=== PATIENT | male | born 1955 | race Hispanic/Latino ===

== ENCOUNTER 2017-08-26 10:55 | Emergency (ER) | payer OTHER ==
--- NOTE | 2017-08-26 13:40 | Emergency Department Report ---
ED Seizure HPI - General Chief Complaint: Seizure Stated Complaint: POSS SEIZURE Time Seen by Provider: 08/26/17 12:33 Source: EMS Mode of arrival: Stretcher Limitations: Altered Mental Status - History of Present Illness Initial Comments: From chart review, neighbor saw patient having seizure-like activity. EMS was called who brought him into the ER. No cords agents were given. Patient doesn' t remember having a seizure. States that he has been a little dizzy lately. He is a poor historian. Patient appears to be homeless. Discussed with the patient's niece, who states that he wonders a street asking people for money. She doesn't know of any medical history. However, she has noticed him having worsening mental status over the past couple months. She is concerned that he could be using drugs. At time of presentation, patient has no complaints. NIHSS 0 on presentation. - Related Data Home Medications Medication Instructions Recorded Confirmed Last Taken No Known Home Medications [No 08/26/17 08/26/17 Unknown Reported Home Medications] Allergies Allergy/AdvReac Type Severity Reaction Status Date / Time No Known Allergies Allergy Unverified 08/26/17 12:28 ED Review of Systems ROS: Stated complaint: POSS SEIZURE Other details as noted in HPI Constitutional: denies: chills, fever Eyes: denies: eye pain, eye discharge, vision change ENT: denies: ear pain, throat pain Respiratory: denies: cough, shortness of breath, wheezing Cardiovascular: denies: chest pain, palpitations Endocrine: no symptoms reported Gastrointestinal: denies: abdominal pain, nausea, diarrhea Genitourinary: denies: urgency, dysuria Musculoskeletal: denies: back pain, joint swelling, arthralgia Skin: denies: rash, lesions Neurological: other. denies: headache, weakness, paresthesias Psychiatric: denies: anxiety, depression Hematological/Lymphatic: denies: easy bleeding, easy bruising ED Past Medical Hx - Past Medical History Previous Medical History?: No Hx Psychiatric Treatment: Yes (SCHZOPHENIA) - Social History Smoking Status: Never Smoker Substance Use Type: Alcohol - Medications Home Medications: Home Medications Medication Instructions Recorded Confirmed Last Taken Type No Known Home Medications [No 08/26/17 08/26/17 Unknown History Reported Home Medications] ED Physical Exam - General Limitations: Altered Mental Status General appearance: alert - Head Head exam: Present: atraumatic, normocephalic - Eye Eye exam: Present: normal appearance - ENT ENT exam: Present: mucous membranes moist - Neck Neck exam: Present: normal inspection - Respiratory Respiratory exam: Present: normal lung sounds bilaterally. Absent: respiratory distress - Cardiovascular Cardiovascular Exam: Present: regular rate, normal rhythm. Absent: systolic murmur, diastolic murmur, rubs, gallop - GI/Abdominal GI/Abdominal exam: Present: soft, normal bowel sounds - Rectal Rectal exam: Present: deferred - Extremities Exam Extremities exam: Present: normal inspection - Back Exam Back exam: Present: normal inspection - Neurological Exam Neurological exam: Present: alert, altered (oriented to place and person) - Psychiatric Psychiatric exam: Present: normal affect, normal mood - Skin Skin exam: Present: warm, dry, intact, normal color. Absent: rash ED Course Vital Signs 08/26/17 08/26/17 12:05 12:25 Temperature 97.7 F 97.7 F Pulse Rate 67 67 Respiratory 13 13 Rate Blood Pressure 123/66 Blood Pressure 123/66 [Left] O2 Sat by Pulse 98 98 Oximetry ED Medical Decision Making - Lab Data Result diagrams: 08/26/17 13:09 08/26/17 13:09 - EKG Data -: EKG Interpreted by Mt EKG shows normal: sinus rhythm, axis, intervals, QRS complexes, ST-T waves Rate: normal - EKG Data Interpretation: no acute changes - Radiology Data Radiology results: report reviewed - Medical Decision Making 62-year-old male with no significant past medical history that presents with concerns for seizure-like activity. Lab work unremarkable. CT head shows chronic microvascular changes. EKG showed questionable ST elevation in lead V2. Low suspicion for ischemic event given there is no 2 contiguous leads with changes, no reciprocal changes, patient denying chest pain at this time. The patient's niece is concerned about his mental state. Mental health came and evaluated the patient. They felt that he would be appropriate for outpatient psychiatric evaluation. She feels comfortable taking him home. Patient was able to ambulate and eat without difficulty. He is clear for discharge. From discussion with the patient's niece, he lives with his sister. However, she didn't seem to be doing this job taking care of him. The niece is concerned about the patient's safety at this time. - Differential Diagnosis seizure, drug-induced, electrolyte abnormality, psychosis, sepsis Critical care attestation.: If time is entered above; I have spent that time in minutes in the direct care of this critically ill patient, excluding procedure time. ED Disposition Clinical Impression: Seizure-like activity Disposition: DC-01 TO HOME OR SELFCARE Is pt being admited?: No Condition: Stable Additional Instructions: Please follow up with the [facility] for further medical evaluation. You have been given resources for out-patient psychiatric evaluation as well. Referrals: PRIMARY CARE [Primary Care Provider] - 3-5 Days [facility] [Provider Group] - 3-5 Days
[2017-08-26 13:42] LABS: Hematocrit 36.6 % (35.5-45.6); Hemoglobin 12.6 gm/dl (11.8-15.2); Mean Corpuscular HGB Conc 35 % (32-34); Mean Corpuscular Hemoglobin 30 pg (28-32); Mean Corpuscular Volume 86 fl (84-94); Platelet Count 485 K/mm3 (140-440); Red Blood Count 4.25 M/mm3 (3.65-5.03)
[2017-08-26 13:54] LABS: Blood Urea Nitrogen 8 mg/dL (9-20)
--- NOTE | 2017-08-26 14:23 | Cat Scan Report ---
CT HEAD WITHOUT CONTRAST: HISTORY: New onset seizure. TECHNIQUE: Sequential CT images without contrast. FINDINGS: Images obtained show bilateral prominence of the sulci and ventricles. There are no abnormal intra- or extra-axial blood or fluid collections. There are no focal masses or evidence of mass effect. The bhandari white matter differentiation appears within normal limits. Regions of periventricular decreased attenuation are consistent with microangiopathic ischemic disease. The posterior fossa structures including the fourth ventricle, cerebellum, and brainstem appear normal. IMPRESSION: Evidence of atrophy and microangiopathic ischemic disease. No acute intracranial process noted.
[2017-08-26 14:50] LABS: BUN/Creatinine Ratio 9; Calcium 8.8 mg/dL (8.4-10.2); Hemolysis Index 7
[2017-08-26 17:01] LABS: Alanine Aminotransferase 14 units/L (7-56); Albumin 3.9 g/dL (3.9-5)
[2017-08-26 17:13] LABS: Bilirubin,Direct < 0.2 mg/dL (0-0.2)
[2017-08-26 19:20] VITALS: BP 122/99
== END 2017-08-26 19:20 | disposition home or self-care (01) ==
LOC: ED 10:55
DX: R56.9 Unspecified convulsions (principal); R41.82 Altered mental status, unspecified; R42 Dizziness and giddiness; F20.9 Schizophrenia, unspecified
CPT/HCPCS: 36415; 70450; 80048; 80074; 82140; 82962; 84484; 85027; 93005; 93010; 99285; G0480; 80320

== ENCOUNTER 2018-09-10 10:22 | Inpatient (IN) | payer OTHER ==
[2018-09-10] MEDS ORDERED: NACL 0.9% 1000 ML 1,000 ML IV ONE (10:49)
[2018-09-10] MEDS ORDERED: KEPPRA 1,000 MG/NS 0.75% 100ML 1,000 MG/100 ML BAG IV ONE (10:49)
--- NOTE | 2018-09-10 11:26 | XRay Report ---
AP CHEST: HISTORY: Hypertension AP view of the chest demonstrates a normal mediastinal and cardiac contour with clear lungs and normal bony and soft tissue structures. IMPRESSION: Unremarkable AP chest.
[2018-09-10 11:34] LABS: Basophils # (Auto) 0.1 K/mm3 (0.0-0.1); Basophils % (Auto) 0.9 % (0.0-1.8); Eosinophils # (Auto) 0.1 K/mm3 (0.0-0.4); Eosinophils % (Auto) 0.9 % (0.0-4.3); Hematocrit 39.8 % (35.5-45.6); Hemoglobin 13.3 gm/dl (11.8-15.2); Lymphocytes # (Auto) 1.1 K/mm3 (1.2-5.4); Lymphocytes % (Auto) 11.2 % (13.4-35.0); Mean Corpuscular HGB Conc 34 % (32-34); Mean Corpuscular Volume 87 fl (84-94); Monocytes # (Auto) 0.2 K/mm3 (0.0-0.8); Monocytes % (Auto) 2.2 % (0.0-7.3); Platelet Count 313 K/mm3 (140-440); Red Blood Count 4.56 M/mm3 (3.65-5.03); Red Cell Distribution Width 14.7 % (13.2-15.2)
--- NOTE | 2018-09-10 11:43 | Cat Scan Report ---
PROCEDURE: CT HEAD/BRAIN WO CON TECHNIQUE: Computerized tomography of the head was performed without contrast material. CT DOSE LENGTH PRODUCT: 920.5 mGycm HISTORY: Altered Mental Status COMPARISONS: 08/26/2017 . FINDINGS: Again noted is small polyp or retention cyst in left maxillary sinus. No acute air-fluid level visualized in the included air-filled sinuses. Bone windows demonstrate no acute fracture. There is ventricular and sulcal prominence compatible with age-appropriate global cerebrocortical atr ophy. Low attenuation regions in the cerebral white matter, while nonspecific, are present and usually attr ibuted to chronic ischemic gliosis. It can occur secondary to the normal aging process, hypertension, or arterial sclerotic vascular dise ase. The differential includes demyelination in the appropriate clinical setting. The brain contains no mass, mass effect, hemorrhage, or acute infarct. There is no extra-axial intracranial bleed or brain bleed. There is no midline shift. IMPRESSION: No acute CVA, intracranial bleed, or brain mass This document is electronically signed by Jose Luis Gasca MD., September 10 2018 11:41:17 AM ET
[2018-09-10 11:46] LABS: INR 0.95 (0.87-1.13)
[2018-09-10 11:56] LABS: Alanine Aminotransferase 14 units/L (7-56); Albumin 4.2 g/dL (3.9-5)
[2018-09-10 11:57] LABS: Bilirubin,Direct < 0.2 mg/dL (0-0.2)
--- NOTE | 2018-09-10 13:03 | Emergency Department Report ---
ED General Adult HPI - General Chief complaint: Altered Mental Status Stated complaint: AMS Time Seen by Provider: 09/10/18 10:30 Source: EMS Mode of arrival: Stretcher Limitations: Altered Mental Status - History of Present Illness Initial comments: 63 year old man is brought by EMS for presumptive evaluation of a seizure. Family members are not yet available. Medics found the man with altered mental status. Family stated that he "reared up". They state that he has never had a seizure before. However records from last year seemed to indicate that likely he has had a prior episode. According to the medics, he is coming from a very poor home environment. Further history is yet unavailable. -: unknown Severity scale (0 -10): 0 - Related Data Home Medications Medication Instructions Recorded Confirmed Last Taken No Known Home Medications [No 08/26/17 08/26/17 Unknown Reported Home Medications] Allergies Allergy/AdvReac Type Severity Reaction Status Date / Time No Known Allergies Allergy Verified 09/10/18 10:34 ED Review of Systems ROS: Stated complaint: AMS Other details as noted in HPI Comment: Unobtainable due to pts medical conditions (patient is not reporting any specific complaint) ED Past Medical Hx - Past Medical History Previous Medical History?: Yes Hx Psychiatric Treatment: Yes (SCHZOPHENIA) - Surgical History Past Surgical History?: No - Social History Smoking Status: Never Smoker - Medications Home Medications: Home Medications Medication Instructions Recorded Confirmed Last Taken Type No Known Home Medications [No 08/26/17 08/26/17 Unknown History Reported Home Medications] ED Physical Exam - General Limitations: Altered Mental Status General appearance: alert, in no apparent distress, cachectic - Head Head exam: Present: atraumatic, normocephalic - Eye Eye exam: Present: normal appearance. Absent: scleral icterus - ENT ENT exam: Present: mucous membranes moist - Neck Neck exam: Present: normal inspection. Absent: tenderness, meningismus - Respiratory Respiratory exam: Present: normal lung sounds bilaterally. Absent: respiratory distress - Cardiovascular Cardiovascular Exam: Present: regular rate, normal rhythm. Absent: systolic murmur, diastolic murmur, rubs, gallop - GI/Abdominal GI/Abdominal exam: Present: soft, normal bowel sounds. Absent: distended, tenderness, guarding, rebound, rigid - Rectal Rectal exam: Present: deferred - Extremities Exam Extremities exam: Present: normal inspection - Back Exam Back exam: Present: normal inspection - Neurological Exam Neurological exam: Present: alert, altered, CN II-XII intact - Psychiatric Psychiatric exam: Present: normal mood, flat affect - Skin Skin exam: Present: warm, dry, intact, normal color. Absent: rash ED Course Vital Signs 09/10/18 10:22 Temperature 97.9 F Pulse Rate 74 Respiratory 12 Rate Blood Pressure 103/55 [Left] O2 Sat by Pulse 100 Oximetry - Reevaluation(s) Reevaluation #1: On reassessment the patient is able to give me his name now. There are no signs of a stroke syndrome. He may have an improving postictal state. He may have a combination of dementia and schizophrenia. He has been seen by case management. A formal consult will be issued. Case was discussed with Dr. Luis. He is aware of the patient's elevated lactic acid level. There is another one pending. He does not have a SIRS syndrome. We have elected to hold off on antibiotics at this point. The patient will be admitted. 09/10/18 13:02 Reevaluation #2: Urinanalysis is yet pending. Straight cath was ordered. 09/10/18 13:04 ED Medical Decision Making - Lab Data Result diagrams: 09/10/18 11:03 09/10/18 11:03 Laboratory Results - last 24 hr 09/10/18 09/10/18 09/10/18 11:03 11:03 11:03 WBC RBC Hgb Hct MCV MCH MCHC RDW Plt Count Lymph % (Auto) Sampson % (Auto) Eos % (Auto) Baso % (Auto) Lymph # Sampson # Eos # Baso # Seg Neutrophils % Seg Neutrophils # PT 13.2 INR 0.95 APTT 20.0 L Sodium Potassium Chloride Carbon Dioxide Anion Gap BUN Creatinine Estimated GFR BUN/Creatinine Ratio Glucose Lactic Acid 3.80 H* Calcium Magnesium Total Bilirubin 0.60 Direct Bilirubin < 0.2 Indirect Bilirubin 0.4 AST 20 ALT 14 Alkaline Phosphatase 54 Ammonia Total Creatine Kinase 226 H Troponin T < 0.010 Total Protein 6.9 Albumin 4.2 Albumin/Globulin Ratio 1.6 Salicylates Acetaminophen Plasma/Serum Alcohol 09/10/18 09/10/18 09/10/18 11:03 11:03 11:03 WBC RBC Hgb Hct MCV MCH MCHC RDW Plt Count Lymph % (Auto) [place] % (Auto) Eos % (Auto) Baso % (Auto) Lymph # Sampson # Eos # Baso # Seg Neutrophils % Seg Neutrophils # PT INR APTT Sodium Potassium Chloride Carbon Dioxide Anion Gap BUN Creatinine Estimated GFR BUN/Creatinine Ratio Glucose Lactic Acid Calcium Magnesium Total Bilirubin Direct Bilirubin Indirect Bilirubin AST ALT Alkaline Phosphatase Ammonia 18.0 L Total Creatine Kinase Troponin T Total Protein Albumin Albumin/Globulin Ratio Salicylates < 0.3 L Acetaminophen < 5.0 L Plasma/Serum Alcohol 09/10/18 09/10/18 09/10/18 11:03 11:03 11:03 WBC 10.1 RBC 4.56 Hgb 13.3 Hct 39.8 MCV 87 MCH 29 MCHC 34 RDW 14.7 Plt Count 313 Lymph % (Auto) 11.2 L Sampson % (Auto) 2.2 Eos % (Auto) 0.9 Baso % (Auto) 0.9 Lymph # 1.1 L Sampson # 0.2 Eos # 0.1 Baso # 0.1 Seg Neutrophils % 84.8 H Seg Neutrophils # 8.5 H PT INR APTT Sodium 140 Potassium 4.5 Chloride 103.4 Carbon Dioxide 22 Anion Gap 19 BUN 17 Creatinine 1.5 Estimated GFR 47 BUN/Creatinine Ratio 11 Glucose 87 Lactic Acid Calcium 9.0 Magnesium 2.10 Total Bilirubin Direct Bilirubin Indirect Bilirubin AST ALT Alkaline Phosphatase Ammonia Total Creatine Kinase Troponin T Total Protein Albumin Albumin/Globulin Ratio Salicylates Acetaminophen Plasma/Serum Alcohol < 0.01 - EKG Data -: EKG Interpreted by Nv EKG shows normal: sinus rhythm - EKG Data Interpretation: other (right bundle branch block. Possible LVH. Secondary repolarization abnormality) - Radiology Data Radiology results: report reviewed (CT head and chest x-ray no acute process) Critical care attestation.: If time is entered above; I have spent that time in minutes in the direct care of this critically ill patient, excluding procedure time. ED Disposition Clinical Impression: Acute encephalopathy, Postictal state, Elevated lactic acid level Disposition: OP ADMIT IP TO THIS HOSP Is pt being admited?: Yes Does the pt Need Aspirin: Yes Condition: Stable Referrals: RUPERTO BARRETO MD [Primary Care Provider] - 3-5 Days Time of Disposition: 13:05
[2018-09-10] MEDS ORDERED: ASPIRIN PO ONE (13:05)
[2018-09-10 14:17] LABS: Bacteria,Urine 1+ /HPF (Negative); Bilirubin,Urine NEG (Negative); Blood,Urine SM (Negative); Color,Urine Yellow (Yellow); Protein,Urine <15 mg/dL mg/dL (Negative); Sperm,Urine FEW /HPF (NP); Urobilinogen,Urine < 2.0 mg/dL (<2.0)
[2018-09-10 14:31] LABS: Amphetamine Screen,Urine PRESUMPTIVE NEGATIVE; Benzodiazepines Screen,Urine PRESUMPTIVE NEGATIVE; Cannabinoid Screen,Urine PRESUMPTIVE NEGATIVE; Cocaine Screen,Urine PRESUMPTIVE NEGATIVE; Methadone Screen,Urine PRESUMPTIVE NEGATIVE; Opiate Screen,Urine PRESUMPTIVE NEGATIVE
[2018-09-10] MEDS ORDERED: SODIUM CHLORIDE FLUSH SYRINGE 10 ML IV PRN (22:14)
[2018-09-10] MEDS ORDERED: DILAUDID IV PRN (22:14)
[2018-09-10] MEDS ORDERED: ZOFRAN IV PRN (22:14)
[2018-09-10] MEDS ORDERED: TYLENOL PO PRN (22:14)
[2018-09-10] MEDS ORDERED: IBUPROFEN PO PRN (22:14)
[2018-09-10] MEDS ORDERED: KEPPRA 750 MG in D5W 100 ML IV SCH (23:00)
[2018-09-10] MEDS ORDERED: D5NS 1,000 ML IV SCH (23:00)
--- NOTE | 2018-09-11 05:40 | Event Note ---
Date: 09/10/18 See H/p in reports Seizure Disorder AMS Dementia
--- NOTE | 2018-09-11 05:59 | History and Physical Report ---
CHIEF COMPLAINT: Seizures x 1. HISTORY OF PRESENT ILLNESS: As per the EMS, a 63-year-old man brought in for one episode of seizures. The history is not reliable. In the ER, the patient is emaciated and confused, wants to go home, but does not know the address. Keeps getting up in the Emergency Room, taking his IV out and wanting to go home, but not able to give address and saying that he lives close by and he can walk back to the house. Not able to tell the date and place. Otherwise, alert and oriented to person and place, but not time. He says he has a dog, which is to be taken care of. Apparent seizures x 1. No fever or chills. No recent travel, no shortness of breath. PAST MEDICAL HISTORY: Schizophrenia. PAST SURGICAL HISTORY: None. SOCIAL HISTORY: Does not smoke, emaciated. FAMILY HISTORY: Unknown. REVIEW OF SYSTEMS: Significant for being alert, but confused. One episode of probable seizures. No psychotic symptoms. PHYSICAL EXAMINATION: GENERAL: Elderly male, frail and thin, unkempt. HEENT: Unremarkable. Pupils equal and reactive. NECK: Supple, no lymphadenopathy, no thyromegaly. LUNGS: Clear to auscultation and percussion. Good air entry. CARDIOVASCULAR: S1, S2 heard. No gallop, no murmur, no rub. Apical impulse in left fifth intercostal space and midclavicular line. ABDOMEN: Soft and benign. No hepatosplenomegaly. No guarding, no rigidity. Hernial orifices are normal. EXTREMITIES: Good pedal pulses. No pedal edema. CENTRAL NERVOUS SYSTEM: Alert and oriented to place. Unable to give his address. Power is 5/5 in all 4 extremities. SKIN: Normal. LABORATORY DATA: Drug screen was negative. Urine is negative. Electrolytes are normal. Lactic acid is 3.8 and 2.5. Ammonia level was low 18. Total CK is 226, but CK-MB and all are negative. Troponin is negative. CBC: White count is 10,100, H and H is 13.3 and 39.8. Platelet count is 313,000. CT of the head shows normal CT. No acute CVA or intracranial bleed or brain mass. Chest x-ray is also normal. EKG shows right bundle branch block and LVH. Secondary repolarization abnormalities. Otherwise, sinus rhythm. ASSESSMENT AND PLAN: 1. Seizure disorder. The patient not in postictal state. The patient started on IV Keppra 750 q. 12. We will get a Neurology consult. The patient may be discharged on Keppra p.o. 2. Altered mental status. The patient is alert and oriented to some extent. Signs of severe dementia present. Neurology consult requested. 3. Schizophrenia, mental health consult requested. 4. Deep venous thrombosis prophylaxis. Lovenox was started and gastrointestinal prophylaxis started. DISCHARGE PLANNING ISSUES: The patient is not able to tell his address and where to go. His relatives to be located and get a baseline assessment and probably discharged back to the relatives and in a safe discharge to home. manager [employer] and social work supervisor were requested to evaluate the situation. JOB# [id number] MARYCHUY/HASMUKH CABRAL
[2018-09-11 08:11] LABS: Basophils # (Auto) 0.1 K/mm3 (0.0-0.1); Basophils % (Auto) 0.8 % (0.0-1.8); Eosinophils # (Auto) 0.1 K/mm3 (0.0-0.4); Eosinophils % (Auto) 1.3 % (0.0-4.3); Hematocrit 36.7 % (35.5-45.6); Hemoglobin 12.2 gm/dl (11.8-15.2); Lymphocytes # (Auto) 1.4 K/mm3 (1.2-5.4); Lymphocytes % (Auto) 17.9 % (13.4-35.0); Mean Corpuscular HGB Conc 33 % (32-34); Mean Corpuscular Volume 87 fl (84-94); Monocytes # (Auto) 0.5 K/mm3 (0.0-0.8); Platelet Count 291 K/mm3 (140-440); Red Blood Count 4.25 M/mm3 (3.65-5.03); Red Cell Distribution Width 14.8 % (13.2-15.2)
[2018-09-11 08:42] LABS: Albumin 3.3 g/dL (3.9-5); Calcium 8.1 mg/dL (8.4-10.2)
--- NOTE | 2018-09-11 08:52 | Progress Note ---
Assessment and Plan Assessment and plan: Patient is a 63 yo man with a history of Schizophrenia and dementia who presented to [facility] with AMS and possible seizure activity Acute encephalopathy treat the underling seizures Acute on chronic seizure disorder: treat with Keppra, pending Neurology isaac vitale Bradycardia: continue to monitor, get EKG, add remote tele, get ECHO Elevated bp uncontrolled: stop IVF on regular diet Lactic acidosis, non-infectious Mild malnutrition: dietary supplements recommended DVT ppx on Lovenox Disposition: continue inpatient care, workup HR 49, d/c home with family or admit to [facility] unit History Interval history: Patient was seen and examined. Follow-up on current diagnosis of SZ and AMS. No overnight events reported to me. Patient denies any chest pain, shortness breath, nausea/vomiting or severe headaches. Imaging, nursing note, chart, labs and old chart reviewed. Discussed with patient. Hospitalist Physical - Physical exam Narrative exam: Gen: thin frail, NAD, Awake, confused HEENT: NCAT, EOMI, PERRL, OP Clear Neck: supple, no adenopathy, no thyromegaly, no JVD CVS/Heart: Regular bradycardia, normal S1S2, pulses present bilaterally Chest/Lungs: CTA B, Symmetrical chest expansion, good air entry bilaterally GI/Abdomen: soft, NTND, good bowel sounds, no guarding or rebound /Bladder: no suprapubic tenderness, no CVA or paraspinal tenderness Extermity/Skin: no c/c/e, no obvious rash MSK: FROM x 4 Neuro: CN 2-12 grossly intact, no new focal deficits Psych: confused - Constitutional Vitals: Temp Pulse Resp BP Pulse Ox 97.6 F 49 L 16 115/76 98 09/11/18 05:56 09/11/18 05:56 09/11/18 05:56 09/11/18 05:56 09/11/18 05:56 Results - Labs CBC & Chem 7: 09/11/18 07:23 09/11/18 07:23 Labs: Laboratory Last Values WBC 7.8 K/mm3 (4.5-11.0) 09/11/18 07:23 RBC 4.25 M/mm3 (3.65-5.03) 09/11/18 07:23 Hgb 12.2 gm/dl (11.8-15.2) 09/11/18 07:23 Hct 36.7 % (35.5-45.6) 09/11/18 07:23 MCV 87 fl (84-94) 09/11/18 07:23 MCH 29 pg (28-32) 09/11/18 07:23 MCHC 33 % (32-34) 09/11/18 07:23 RDW 14.8 % (13.2-15.2) 09/11/18 07:23 Plt Count 291 K/mm3 (140-440) 09/11/18 07:23 Lymph % (Auto) 17.9 % (13.4-35.0) 09/11/18 07:23 [place] % (Auto) 6.0 % (0.0-7.3) 09/11/18 07:23 Eos % (Auto) 1.3 % (0.0-4.3) 09/11/18 07:23 Baso % (Auto) 0.8 % (0.0-1.8) 09/11/18 07:23 Lymph # 1.4 K/mm3 (1.2-5.4) 09/11/18 07:23 [place] # 0.5 K/mm3 (0.0-0.8) 09/11/18 07:23 Eos # 0.1 K/mm3 (0.0-0.4) 09/11/18 07:23 Baso # 0.1 K/mm3 (0.0-0.1) 09/11/18 07:23 Seg Neutrophils % 74.0 % (40.0-70.0) H 09/11/18 07:23 Seg Neutrophils # 5.7 K/mm3 (1.8-7.7) 09/11/18 07:23 PT 13.2 Sec. (12.2-14.9) 09/10/18 11:03 INR 0.95 (0.87-1.13) 09/10/18 11:03 APTT 20.0 Sec. (24.2-36.6) L 09/10/18 11:03 Sodium 142 mmol/L (137-145) 09/11/18 07:23 Potassium 3.4 mmol/L (3.6-5.0) L D 09/11/18 07:23 Chloride 108.0 mmol/L (98-107) H 09/11/18 07:23 Carbon Dioxide 22 mmol/L (22-30) 09/11/18 07:23 15 mmol/L 09/11/18 07:23 BUN 16 mg/dL (9-20) 09/11/18 07:23 1.3 mg/dL (0.8-1.5) 09/11/18 07:23 Estimated GFR 56 ml/min 09/11/18 07:23 12 % 09/11/18 07:23 Glucose 114 mg/dL (75-100) H 09/11/18 07:23 5.4 % (4-6) 09/10/18 22:37 Lactic Acid 0.80 mmol/L (0.7-2.0) 09/10/18 20:54 Calcium 8.1 mg/dL (8.4-10.2) L 09/11/18 07:23 Magnesium 2.10 mg/dL (1.7-2.3) 09/10/18 11:03 1.10 mg/dL (0.1-1.2) 09/11/18 07:23 < 0.2 mg/dL (0-0.2) 09/10/18 11:03 0.4 mg/dL 09/10/18 11:03 AST 19 units/L (5-40) 09/11/18 07:23 ALT 10 units/L (7-56) 09/11/18 07:23 46 units/L (35-129) 09/11/18 07:23 18.0 umol/L (25-60) L 09/10/18 11:03 226 units/L (55-170) H 09/10/18 11:03 < 0.010 ng/mL (0.00-0.029) 09/10/18 11:03 5.6 g/dL (6.3-8.2) L 09/11/18 07:23 3.3 g/dL (3.9-5) L 09/11/18 07:23 1.4 % 09/11/18 07:23 Yellow (Yellow) 09/10/18 Unknown Cloudy (Clear) 09/10/18 Unknown 5.0 (5.0-7.0) 09/10/18 Unknown Ur Specific [place] 1.014 (1.003-1.030) 09/10/18 Unknown <15 mg/dl mg/dL (Negative) 09/10/18 Unknown Neg mg/dL (Negative) 09/10/18 Unknown Neg mg/dL (Negative) 09/10/18 Unknown Sm (Negative) 09/10/18 Unknown Neg (Negative) 09/10/18 Unknown Neg (Negative) 09/10/18 Unknown < 2.0 mg/dL (<2.0) 09/10/18 Unknown Ur Leukocyte Esterase Neg (Negative) 09/10/18 Unknown 2.0 /HPF (0.0-6.0) 09/10/18 Unknown 3.0 /HPF (0.0-6.0) 09/10/18 Unknown U Epithel Cells (Auto) < 1.0 /HPF (0-13.0) 09/10/18 Unknown 1+ /HPF (Negative) 09/10/18 Unknown Uric Acid Crystals 2+ 09/10/18 Unknown Few /HPF ([employer]) 09/10/18 Unknown Salicylates < 0.3 mg/dL (2.8-20.0) L 09/10/18 11:03 Presumptive negative 09/10/18 Unknown Presumptive negative 09/10/18 Unknown Acetaminophen < 5.0 ug/mL (10.0-30.0) L 09/10/18 11:03 Ur Barbiturates Screen Presumptive negative 09/10/18 Unknown Ur Phencyclidine Scrn Presumptive negative 09/10/18 Unknown Ur Amphetamines Screen Presumptive negative 09/10/18 Unknown U Benzodiazepines Scrn Presumptive negative 09/10/18 Unknown Presumptive negative 09/10/18 Unknown U Marijuana (THC) Screen Presumptive negative 09/10/18 Unknown Disclamer 09/10/18 Unknown Plasma/Serum Alcohol < 0.01 % (0-0.07) 09/10/18 11:03 Active Medications - Current Medications Current Medications: Generic Name Dose Route Start Last Admin Trade Name Freq PRN Reason Stop Dose Admin Acetaminophen 650 mg 09/10/18 22:14 Tylenol PO Q4H PRN Pain MILD(1-3)/Fever >100.5/CHAVEZ Enoxaparin Sodium 40 mg 09/11/18 10:00 Lovenox SUB-Q QDAY@1000 TALIA Famotidine 10 mg 09/11/18 10:00 Pepcid PO BID TALIA Hydromorphone HCl 0.25 mg 09/10/18 22:14 Dilaudid IV Q3H PRN Pain, Moderate (4-6) Dextrose/Sodium Chloride 1,000 mls @ 100 mls/hr 09/10/18 23:00 09/11/18 00:07 D5ns IV 100 mls/hr DIRECT TALIA Administration Levetiracetam 750 mg/ Dextrose 107.5 mls @ 400 mls/hr 09/10/18 23:00 09/10/18 23:57 IV 400 mls/hr Q12HR TALIA Administration Ibuprofen 600 mg 09/10/18 22:14 Ibuprofen PO Q6H PRN Pain, Mild (1-3) Ondansetron HCl 4 mg 09/10/18 22:14 Zofran IV Q8H PRN Nausea And Vomiting Sodium Chloride 10 ml 09/11/18 10:00 Sodium Chloride Flush Syringe 10 Ml IV BID TALIA Sodium Chloride 10 ml 09/10/18 22:14 Sodium Chloride Flush Syringe 10 Ml IV PRN PRN LINE FLUSH
[2018-09-11] MEDS ORDERED: LOVENOX SUB-Q SCH (10:00)
[2018-09-11] MEDS: SODIUM CHLORIDE FLUSH SYRINGE 10 ML IV SCH (10:00)
[2018-09-11] MEDS ORDERED: PEPCID PO SCH (10:00)
[2018-09-11] MEDS: KEPPRA PO SCH ×2 (11:38→21:40)
[2018-09-11] MEDS: PEPCID PO SCH ×2 (11:40→21:40)
[2018-09-11] MEDS: LOVENOX SUB-Q SCH (11:41)
[2018-09-12] MEDS: LOVENOX SUB-Q SCH (11:30)
[2018-09-12] MEDS: PEPCID PO SCH ×2 (11:30→21:43)
[2018-09-12] MEDS: KEPPRA PO SCH ×2 (11:30→21:43)
[2018-09-12] MEDS: SODIUM CHLORIDE FLUSH SYRINGE 10 ML IV SCH ×2 (11:31→21:46)
--- NOTE | 2018-09-12 15:02 | Progress Note ---
Assessment and Plan Assessment and plan: Patient is a 63 yo man with a history of Schizophrenia and dementia who presented to [facility] with AMS and possible seizure activity Acute encephalopathy treat the underling seizures Acute on chronic seizure disorder: treat with Keppra, pending Neurology isaac vitale Bradycardia: continue to monitor, get EKG, add remote tele, get ECHO Elevated bp uncontrolled: stop IVF on regular diet Lactic acidosis, non-infectious Mild malnutrition: dietary supplements recommended DVT ppx on Lovenox Disposition: continue inpatient care, workup HR 49, d/c home with family once psych clears History Interval history: Patient was seen and examined. Follow-up on current diagnosis of SZ and AMS. No overnight events reported to me. Patient denies any chest pain, shortness breath, nausea/vomiting or severe headaches. Imaging, nursing note, chart, labs and old chart reviewed. Discussed with patient. Hospitalist Physical - Physical exam Narrative exam: Gen: thin frail, NAD, Awake, confused HEENT: NCAT, EOMI, PERRL, OP Clear Neck: supple, no adenopathy, no thyromegaly, no JVD CVS/Heart: Regular bradycardia, normal S1S2, pulses present bilaterally Chest/Lungs: CTA B, Symmetrical chest expansion, good air entry bilaterally GI/Abdomen: soft, NTND, good bowel sounds, no guarding or rebound /Bladder: no suprapubic tenderness, no CVA or paraspinal tenderness Extermity/Skin: no c/c/e, no obvious rash MSK: FROM x 4 Neuro: CN 2-12 grossly intact, no new focal deficits Psych: confused - Constitutional Vitals: Temp Pulse Resp BP Pulse Ox 98.4 F 51 L 18 112/60 98 09/12/18 12:25 09/12/18 06:26 09/12/18 12:25 09/12/18 12:25 09/12/18 06:26 Results - Labs CBC & Chem 7: 09/11/18 07:23 09/11/18 07:23 Labs: Laboratory Last Values WBC 7.8 K/mm3 (4.5-11.0) 09/11/18 07:23 RBC 4.25 M/mm3 (3.65-5.03) 09/11/18 07:23 Hgb 12.2 gm/dl (11.8-15.2) 09/11/18 07:23 Hct 36.7 % (35.5-45.6) 09/11/18 07:23 MCV 87 fl (84-94) 09/11/18 07:23 MCH 29 pg (28-32) 09/11/18 07:23 MCHC 33 % (32-34) 09/11/18 07:23 RDW 14.8 % (13.2-15.2) 09/11/18 07:23 Plt Count 291 K/mm3 (140-440) 09/11/18 07:23 Lymph % (Auto) 17.9 % (13.4-35.0) 09/11/18 07:23 [place] % (Auto) 6.0 % (0.0-7.3) 09/11/18 07:23 Eos % (Auto) 1.3 % (0.0-4.3) 09/11/18 07:23 Baso % (Auto) 0.8 % (0.0-1.8) 09/11/18 07:23 Lymph # 1.4 K/mm3 (1.2-5.4) 09/11/18 07:23 [place] # 0.5 K/mm3 (0.0-0.8) 09/11/18 07:23 Eos # 0.1 K/mm3 (0.0-0.4) 09/11/18 07:23 Baso # 0.1 K/mm3 (0.0-0.1) 09/11/18 07:23 Seg Neutrophils % 74.0 % (40.0-70.0) H 09/11/18 07:23 Seg Neutrophils # 5.7 K/mm3 (1.8-7.7) 09/11/18 07:23 PT 13.2 Sec. (12.2-14.9) 09/10/18 11:03 INR 0.95 (0.87-1.13) 09/10/18 11:03 APTT 20.0 Sec. (24.2-36.6) L 09/10/18 11:03 Sodium 142 mmol/L (137-145) 09/11/18 07:23 Potassium 3.4 mmol/L (3.6-5.0) L D 09/11/18 07:23 Chloride 108.0 mmol/L (98-107) H 09/11/18 07:23 Carbon Dioxide 22 mmol/L (22-30) 09/11/18 07:23 15 mmol/L 09/11/18 07:23 BUN 16 mg/dL (9-20) 09/11/18 07:23 1.3 mg/dL (0.8-1.5) 09/11/18 07:23 Estimated GFR 56 ml/min 09/11/18 07:23 12 % 09/11/18 07:23 Glucose 114 mg/dL (75-100) H 09/11/18 07:23 5.4 % (4-6) 09/10/18 22:37 Lactic Acid 0.80 mmol/L (0.7-2.0) 09/10/18 20:54 Calcium 8.1 mg/dL (8.4-10.2) L 09/11/18 07:23 Magnesium 2.10 mg/dL (1.7-2.3) 09/10/18 11:03 1.10 mg/dL (0.1-1.2) 09/11/18 07:23 < 0.2 mg/dL (0-0.2) 09/10/18 11:03 0.4 mg/dL 09/10/18 11:03 AST 19 units/L (5-40) 09/11/18 07:23 ALT 10 units/L (7-56) 09/11/18 07:23 46 units/L (35-129) 09/11/18 07:23 18.0 umol/L (25-60) L 09/10/18 11:03 226 units/L (55-170) H 09/10/18 11:03 < 0.010 ng/mL (0.00-0.029) 09/10/18 11:03 5.6 g/dL (6.3-8.2) L 09/11/18 07:23 3.3 g/dL (3.9-5) L 09/11/18 07:23 1.4 % 09/11/18 07:23 Yellow (Yellow) 09/10/18 Unknown Cloudy (Clear) 09/10/18 Unknown 5.0 (5.0-7.0) 09/10/18 Unknown Ur Specific [place] 1.014 (1.003-1.030) 09/10/18 Unknown <15 mg/dl mg/dL (Negative) 09/10/18 Unknown Neg mg/dL (Negative) 09/10/18 Unknown Neg mg/dL (Negative) 09/10/18 Unknown Sm (Negative) 09/10/18 Unknown Neg (Negative) 09/10/18 Unknown Neg (Negative) 09/10/18 Unknown < 2.0 mg/dL (<2.0) 09/10/18 Unknown Ur Leukocyte Esterase Neg (Negative) 09/10/18 Unknown 2.0 /HPF (0.0-6.0) 09/10/18 Unknown 3.0 /HPF (0.0-6.0) 09/10/18 Unknown U Epithel Cells (Auto) < 1.0 /HPF (0-13.0) 09/10/18 Unknown 1+ /HPF (Negative) 09/10/18 Unknown Uric Acid Crystals 2+ 09/10/18 Unknown Few /HPF (TEXTILE ENGRAVER) 09/10/18 Unknown Salicylates < 0.3 mg/dL (2.8-20.0) L 09/10/18 11:03 Presumptive negative 09/10/18 Unknown Presumptive negative 09/10/18 Unknown Acetaminophen < 5.0 ug/mL (10.0-30.0) L 09/10/18 11:03 Ur Barbiturates Screen Presumptive negative 09/10/18 Unknown Ur Phencyclidine Scrn Presumptive negative 09/10/18 Unknown Ur Amphetamines Screen Presumptive negative 09/10/18 Unknown U Benzodiazepines Scrn Presumptive negative 09/10/18 Unknown Presumptive negative 09/10/18 Unknown U Marijuana (THC) Screen Presumptive negative 09/10/18 Unknown Disclamer 09/10/18 Unknown Plasma/Serum Alcohol < 0.01 % (0-0.07) 09/10/18 11:03 Active Medications - Current Medications Current Medications: Generic Name Dose Route Start Last Admin Trade Name Freq PRN Reason Stop Dose Admin Acetaminophen 650 mg 09/10/18 22:14 Tylenol PO Q4H PRN Pain MILD(1-3)/Fever >100.5/CHAVEZ Enoxaparin Sodium 40 mg 09/11/18 10:00 09/12/18 11:30 Lovenox SUB-Q 40 mg QDAY@1000 TALIA Administration Famotidine 10 mg 09/11/18 10:00 09/12/18 11:30 Pepcid PO 10 mg BID TALIA Administration Hydromorphone HCl 0.25 mg 09/10/18 22:14 Dilaudid IV Q3H PRN Pain, Moderate (4-6) Levetiracetam 750 mg 09/11/18 10:00 09/12/18 11:30 Keppra PO 750 mg BID TALIA Administration Ondansetron HCl 4 mg 09/10/18 22:14 Zofran IV Q8H PRN Nausea And Vomiting Sodium Chloride 10 ml 09/11/18 10:00 09/12/18 11:31 Sodium Chloride Flush Syringe 10 Ml IV 10 ml BID TALIA Administration Sodium Chloride 10 ml 09/10/18 22:14 Sodium Chloride Flush Syringe 10 Ml IV PRN PRN LINE FLUSH Nutrition/Malnutrition Assess - Dietary Evaluation Nutrition/Malnutrition Findings: Nutrition Notes Start: 09/11/18 16:55 Freq: Status: Active Protocol: Document 09/11/18 16:55 RM (Rec: 09/11/18 17:01 RM [id number]) Nutrition Notes Need for Assessment generated from: MST Initial or Follow up Assessment Other Pertinent Diagnosis Schizophrenia, Seizure disorder, AMS Current Diet Regular Labs/Tests Reviewed Pertinent Medications Reviewed Height 5 ft 7 in Weight 61.6 kg [place] Body Weight (kg) 67.27 BMI 21.2 Subjective/Other Information Screened for malnutrition. Pt w/sitter at time of visit. Pt stated that REPORT SPECIALIST his appetite was okay but that he is unsure how many meals he was eating daily. Unsure of how much he has been eating here and of UBW. Noted lunch at bedside w/none eaten. credit administration specialist stated that pt ate all of his breakfast. No temporal or orbital wasting . Burn Absent Trauma Absent #1 Nutrition Diagnosis Inadequate oral intake Etiology AMS As Evidenced by Signs and Symptoms lunch at bedside w/none eaten Is patient on ventilator? No Is Patient Ambulatory and/or Out of Bed Yes REE-([facility]-ambulatory/OOB) [ 1780.519 NUTR.MSJOOB] Calculation Used for Recommendations [facility] Additional Notes Protein Needs: 49-62g (0.8-1g/ kg) Fluid Needs: 1 ml/kcal Nutrition Intervention Change Diet Order: Continue current Add Supplement/Snack (indicate name/kcal Ensure Enlive 1 daily /protein ) Provides kCal: 350 Provides Protein (gm) 20 Goal #1 Meet at least 75% of calorie and protein needs via PO and ONS intakes Anticipated Discharge Needs: Regular diet Follow-Up By: 09/16/18 Additional Comments Follow for PO and ONS intakes
--- NOTE | 2018-09-12 19:45 | Consultation ---
History of Present Illness - Reason for Consult Consult date: 09/12/18 Reason for consult: psychiatric evaluation - Chief Complaint Chief complaint: "I want to go home." - History of Present Psychiatric Illness Mr. Singh is a 63-year-old W/M who was referred to psychiatry for psychosis. He reported he did not know why he was in the hospital. He reports he lives with his mom and daddy. He denied a history of mental health diagnoses. The record from 2018 indicates a possible previous diagnosis of schizophrenia. The past record indicated he would wander the streets asking for money but lived with his sister. Case management has attempted to contact family but has been unsuccessful. He denied suicidal and homicidal ideations. "Sometimes people tell me I forget things, but doesn't everybody forget sometimes?" He was unaware of a history of seizures despite the information from the record. "What test did they use to determine that?" He is oriented to person, state, current location, but not to time, date, or year. He could not name more than 2 animals in one minute. He told a story about having a cat and his sister having a cat. When asked about having children, he said "No; I have florentin bears; I have a sister." He recalled 1/3 objects after 3 minutes. He was otherwise unable to answer questions and stated, "I don't know or I don't remember." He asked to go home. Medications and Allergies Allergies Allergy/AdvReac Type Severity Reaction Status Date / Time No Known Allergies Allergy Verified 09/10/18 10:34 Home Medications Medication Instructions Recorded Confirmed Last Taken Type No Known Home Medications [No 08/26/17 09/10/18 Unknown History Reported Home Medications] Active Meds: Active Medications Acetaminophen (Tylenol) 650 mg PO Q4H PRN PRN Reason: Pain MILD(1-3)/Fever >100.5/CHAVEZ Enoxaparin Sodium (Lovenox) 40 mg SUB-Q QDAY@1000 [facility] Last Admin: 09/12/18 11:30 Dose: 40 mg Documented by: Famotidine (Pepcid) 10 mg PO BID [facility] Last Admin: 09/12/18 11:30 Dose: 10 mg Documented by: Hydromorphone HCl (Dilaudid) 0.25 mg IV Q3H PRN PRN Reason: Pain, Moderate (4-6) Levetiracetam (Keppra) 750 mg PO BID [facility] Last Admin: 09/12/18 11:30 Dose: 750 mg Documented by: Ondansetron HCl (Zofran) 4 mg IV Q8H PRN PRN Reason: Nausea And Vomiting Sodium Chloride (Sodium Chloride Flush Syringe 10 Ml) 10 ml IV BID [facility] Last Admin: 09/12/18 11:31 Dose: 10 ml Documented by: Sodium Chloride (Sodium Chloride Flush Syringe 10 Ml) 10 ml IV PRN PRN PRN Reason: LINE FLUSH Past psychiatric history - Past Medical History Past Medical History: seizures - past Psychiatric treatment and history psychiatric treatment history: denies - Social History Social history: other (he admits to drinking beer "every now and then") Mental Status Exam - Vital signs Last Vital Signs Temp 98.4 F 09/12/18 12:25 Pulse 51 L 09/12/18 06:26 Resp 18 09/12/18 12:25 BP 112/60 09/12/18 12:25 Pulse Ox 98 09/12/18 06:26 - Exam Orientation: place, person Affect: flat Mood: calm Thought content: other (sparse) Thought Process: Disoriented Perceptions: none Speech: slow Concentration: focused Motor activity: normal Level of consciousness: confused Memory: Recent Impaired Interaction: cooperative Mini mental status exam(if necessary): 0-17 Results Result Diagrams: 09/11/18 07:23 09/11/18 07:23 All other labs normal. Assessment and Plan Assessment and plan: Impression: He is oriented to person and place. His questions are logical. His baseline is unknown. Collateral needed. Unable to rule out dementia/neurocognitive disorder. Also unable to rule out underlying psychiatric illness Past and current record/reports reviewed Recommendation: follow up in 24 hours monitor mental status for acute changes neurology input recommended dispo: continue medical treatment, further evaluation needed to determine proper dispo staffed with Dr. Jackson
[2018-09-13] MEDS: PEPCID PO SCH ×2 (10:05→21:51)
[2018-09-13] MEDS: LOVENOX SUB-Q SCH (10:05)
[2018-09-13] MEDS: KEPPRA PO SCH ×2 (10:05→21:51)
[2018-09-13] MEDS: SODIUM CHLORIDE FLUSH SYRINGE 10 ML IV SCH ×2 (10:06→21:52)
--- NOTE | 2018-09-13 12:57 | Progress Note ---
Assessment and Plan Assessment and plan: Patient is a 63 yo man with a history of Schizophrenia and dementia who presented to [facility] with AMS and possible seizure activity Acute encephalopathy treat the underling seizures Acute on chronic seizure disorder: treat with Keppra, pending Neurology isaac vitale Bradycardia: continue to monitor, get EKG, add remote tele, ECHO reviewed Elevated bp uncontrolled: stop IVF on regular diet Lactic acidosis, non-infectious Mild malnutrition: dietary supplements recommended DVT ppx on Lovenox Disposition: continue inpatient care, medical stable to be discharge, await Mental health clearance History Interval history: Patient was seen and examined. Follow-up on current diagnosis of SZ and AMS. No overnight events reported to me. Patient denies any chest pain, shortness breath, nausea/vomiting or severe headaches. Imaging, nursing note, chart, labs and old chart reviewed. Discussed with patient. Hospitalist Physical - Physical exam Narrative exam: Gen: thin frail, NAD, Awake, confused HEENT: NCAT, EOMI, PERRL, OP Clear Neck: supple, no adenopathy, no thyromegaly, no JVD CVS/Heart: Regular bradycardia, normal S1S2, pulses present bilaterally Chest/Lungs: CTA B, Symmetrical chest expansion, good air entry bilaterally GI/Abdomen: soft, NTND, good bowel sounds, no guarding or rebound /Bladder: no suprapubic tenderness, no CVA or paraspinal tenderness Extermity/Skin: no c/c/e, no obvious rash MSK: FROM x 4 Neuro: CN 2-12 grossly intact, no new focal deficits Psych: confused - Constitutional Vitals: Temp Pulse Resp BP Pulse Ox 99.1 F 59 L 18 102/62 98 09/13/18 12:26 09/13/18 12:26 09/13/18 12:26 09/13/18 12:26 09/13/18 12:26 Results - Labs CBC & Chem 7: 09/11/18 07:23 09/11/18 07:23 Labs: Laboratory Last Values WBC 7.8 K/mm3 (4.5-11.0) 09/11/18 07:23 RBC 4.25 M/mm3 (3.65-5.03) 09/11/18 07:23 Hgb 12.2 gm/dl (11.8-15.2) 09/11/18 07:23 Hct 36.7 % (35.5-45.6) 09/11/18 07:23 MCV 87 fl (84-94) 09/11/18 07:23 MCH 29 pg (28-32) 09/11/18 07:23 MCHC 33 % (32-34) 09/11/18 07:23 RDW 14.8 % (13.2-15.2) 09/11/18 07:23 Plt Count 291 K/mm3 (140-440) 09/11/18 07:23 Lymph % (Auto) 17.9 % (13.4-35.0) 09/11/18 07:23 [place] % (Auto) 6.0 % (0.0-7.3) 09/11/18 07:23 Eos % (Auto) 1.3 % (0.0-4.3) 09/11/18 07:23 Baso % (Auto) 0.8 % (0.0-1.8) 09/11/18 07:23 Lymph # 1.4 K/mm3 (1.2-5.4) 09/11/18 07:23 [place] # 0.5 K/mm3 (0.0-0.8) 09/11/18 07:23 Eos # 0.1 K/mm3 (0.0-0.4) 09/11/18 07:23 Baso # 0.1 K/mm3 (0.0-0.1) 09/11/18 07:23 Seg Neutrophils % 74.0 % (40.0-70.0) H 09/11/18 07:23 Seg Neutrophils # 5.7 K/mm3 (1.8-7.7) 09/11/18 07:23 PT 13.2 Sec. (12.2-14.9) 09/10/18 11:03 INR 0.95 (0.87-1.13) 09/10/18 11:03 APTT 20.0 Sec. (24.2-36.6) L 09/10/18 11:03 Sodium 142 mmol/L (137-145) 09/11/18 07:23 Potassium 3.4 mmol/L (3.6-5.0) L D 09/11/18 07:23 Chloride 108.0 mmol/L (98-107) H 09/11/18 07:23 Carbon Dioxide 22 mmol/L (22-30) 09/11/18 07:23 15 mmol/L 09/11/18 07:23 BUN 16 mg/dL (9-20) 09/11/18 07:23 1.3 mg/dL (0.8-1.5) 09/11/18 07:23 Estimated GFR 56 ml/min 09/11/18 07:23 12 % 09/11/18 07:23 Glucose 114 mg/dL (75-100) H 09/11/18 07:23 5.4 % (4-6) 09/10/18 22:37 Lactic Acid 0.80 mmol/L (0.7-2.0) 09/10/18 20:54 Calcium 8.1 mg/dL (8.4-10.2) L 09/11/18 07:23 Magnesium 2.10 mg/dL (1.7-2.3) 09/10/18 11:03 1.10 mg/dL (0.1-1.2) 09/11/18 07:23 < 0.2 mg/dL (0-0.2) 09/10/18 11:03 0.4 mg/dL 09/10/18 11:03 AST 19 units/L (5-40) 09/11/18 07:23 ALT 10 units/L (7-56) 09/11/18 07:23 46 units/L (35-129) 09/11/18 07:23 18.0 umol/L (25-60) L 09/10/18 11:03 226 units/L (55-170) H 09/10/18 11:03 < 0.010 ng/mL (0.00-0.029) 09/10/18 11:03 5.6 g/dL (6.3-8.2) L 09/11/18 07:23 3.3 g/dL (3.9-5) L 09/11/18 07:23 1.4 % 09/11/18 07:23 Yellow (Yellow) 09/10/18 Unknown Cloudy (Clear) 09/10/18 Unknown 5.0 (5.0-7.0) 09/10/18 Unknown Ur Specific [place] 1.014 (1.003-1.030) 09/10/18 Unknown <15 mg/dl mg/dL (Negative) 09/10/18 Unknown Neg mg/dL (Negative) 09/10/18 Unknown Neg mg/dL (Negative) 09/10/18 Unknown Sm (Negative) 09/10/18 Unknown Neg (Negative) 09/10/18 Unknown Neg (Negative) 09/10/18 Unknown < 2.0 mg/dL (<2.0) 09/10/18 Unknown Ur Leukocyte Esterase Neg (Negative) 09/10/18 Unknown 2.0 /HPF (0.0-6.0) 09/10/18 Unknown 3.0 /HPF (0.0-6.0) 09/10/18 Unknown U Epithel Cells (Auto) < 1.0 /HPF (0-13.0) 09/10/18 Unknown 1+ /HPF (Negative) 09/10/18 Unknown Uric Acid Crystals 2+ 09/10/18 Unknown Few /HPF ([employer]) 09/10/18 Unknown Salicylates < 0.3 mg/dL (2.8-20.0) L 09/10/18 11:03 Presumptive negative 09/10/18 Unknown Presumptive negative 09/10/18 Unknown Acetaminophen < 5.0 ug/mL (10.0-30.0) L 09/10/18 11:03 Ur Barbiturates Screen Presumptive negative 09/10/18 Unknown Ur Phencyclidine Scrn Presumptive negative 09/10/18 Unknown Ur Amphetamines Screen Presumptive negative 09/10/18 Unknown U Benzodiazepines Scrn Presumptive negative 09/10/18 Unknown Presumptive negative 09/10/18 Unknown U Marijuana (THC) Screen Presumptive negative 09/10/18 Unknown Disclamer 09/10/18 Unknown Plasma/Serum Alcohol < 0.01 % (0-0.07) 09/10/18 11:03 Active Medications - Current Medications Current Medications: Generic Name Dose Route Start Last Admin Trade Name Freq PRN Reason Stop Dose Admin Acetaminophen 650 mg 09/10/18 22:14 Tylenol PO Q4H PRN Pain MILD(1-3)/Fever >100.5/CHAVEZ Enoxaparin Sodium 40 mg 09/11/18 10:00 09/13/18 10:05 Lovenox SUB-Q 40 mg QDAY@1000 TALIA Administration Famotidine 10 mg 09/11/18 10:00 09/13/18 10:05 Pepcid PO 10 mg BID TALIA Administration Hydromorphone HCl 0.25 mg 09/10/18 22:14 Dilaudid IV Q3H PRN Pain, Moderate (4-6) Levetiracetam 750 mg 09/11/18 10:00 09/13/18 10:05 Keppra PO 750 mg BID TALIA Administration Ondansetron HCl 4 mg 09/10/18 22:14 Zofran IV Q8H PRN Nausea And Vomiting Sodium Chloride 10 ml 09/11/18 10:00 09/13/18 10:06 Sodium Chloride Flush Syringe 10 Ml IV 10 ml BID TALIA Administration Sodium Chloride 10 ml 09/10/18 22:14 Sodium Chloride Flush Syringe 10 Ml IV PRN PRN LINE FLUSH Nutrition/Malnutrition Assess - Dietary Evaluation Nutrition/Malnutrition Findings: Nutrition Notes Start: 09/11/18 16:55 Freq: Status: Active Protocol: Document 09/11/18 16:55 RM (Rec: 09/11/18 17:01 RM [id number]) Nutrition Notes Need for Assessment generated from: MST Initial or Follow up Assessment Other Pertinent Diagnosis Schizophrenia, Seizure disorder, AMS Current Diet Regular Labs/Tests Reviewed Pertinent Medications Reviewed Height 5 ft 7 in Weight 61.6 kg [place] Body Weight (kg) 67.27 BMI 21.2 Subjective/Other Information Screened for malnutrition. Pt w/sitter at time of visit. Pt stated that CLINICAL QUALITY RN his appetite was okay but that he is unsure how many meals he was eating daily. Unsure of how much he has been eating here and of UBW. Noted lunch at bedside w/none eaten. contact center analyst stated that pt ate all of his breakfast. No temporal or orbital wasting . Burn Absent Trauma Absent #1 Nutrition Diagnosis Inadequate oral intake Etiology AMS As Evidenced by Signs and Symptoms lunch at bedside w/none eaten Is patient on ventilator? No Is Patient Ambulatory and/or Out of Bed Yes REE-([facility]-ambulatory/OOB) [ 1780.519 NUTR.MSJOOB] Calculation Used for Recommendations [facility] Additional Notes Protein Needs: 49-62g (0.8-1g/ kg) Fluid Needs: 1 ml/kcal Nutrition Intervention Change Diet Order: Continue current Add Supplement/Snack (indicate name/kcal Ensure Enlive 1 daily /protein ) Provides kCal: 350 Provides Protein (gm) 20 Goal #1 Meet at least 75% of calorie and protein needs via PO and ONS intakes Anticipated Discharge Needs: Regular diet Follow-Up By: 09/16/18 Additional Comments Follow for PO and ONS intakes
--- NOTE | 2018-09-13 17:35 | Progress Note ---
Subjective Date of service: 09/13/18 Interval history: for the stated age of 63 there is extremnely severe brain bhandari and white matter atrophy adivse check MRI and based on the seizures plan EEG agree with treatment plan may need further brain atrophy w/u depending on the degree of mary ann matter changes on the MRI reviewed all notes and labs Thanks for the consult Objective - Vital Sign Vital Signs - 12hr 09/13/18 09/13/18 06:40 12:26 Temperature 98.1 F 99.1 F Pulse Rate 46 L 59 L Respiratory 20 18 Rate Blood Pressure 129/81 102/62 O2 Sat by Pulse 98 98 Oximetry - Laboratory Findings CBC and BMP: 09/11/18 07:23 09/11/18 07:23 Abnormal Lab Findings: Abnormal Labs 09/10/18 09/10/18 09/10/18 11:03 11:03 11:03 Lymph % (Auto) Lymph # Seg Neutrophils % Seg Neutrophils # APTT 20.0 L Potassium Chloride Glucose Lactic Acid 3.80 H* Calcium Ammonia Total Creatine Kinase 226 H Total Protein Albumin Salicylates Acetaminophen 09/10/18 09/10/18 09/10/18 11:03 11:03 11:03 Lymph % (Auto) Lymph # Seg Neutrophils % Seg Neutrophils # APTT Potassium Chloride Glucose Lactic Acid Calcium Ammonia 18.0 L Total Creatine Kinase Total Protein Albumin Salicylates < 0.3 L Acetaminophen < 5.0 L 09/10/18 09/10/18 09/11/18 11:03 13:51 07:23 Lymph % (Auto) 11.2 L Lymph # 1.1 L Seg Neutrophils % 84.8 H 74.0 H Seg Neutrophils # 8.5 H APTT Potassium Chloride Glucose Lactic Acid 2.50 H* Calcium Ammonia Total Creatine Kinase Total Protein Albumin Salicylates Acetaminophen 09/11/18 07:23 Lymph % (Auto) Lymph # Seg Neutrophils % Seg Neutrophils # APTT Potassium 3.4 L D Chloride 108.0 H Glucose 114 H Lactic Acid Calcium 8.1 L Ammonia Total Creatine Kinase Total Protein 5.6 L Albumin 3.3 L Salicylates Acetaminophen
--- NOTE | 2018-09-13 19:06 | Progress Note ---
Subjective - Reason for Consult Consult date: 09/13/18 Reason for consult: follow up - Chief Complaint Chief complaint: "I want to leave." Mr. Singh is a 63-year-old W/M who was referred to psychiatry for psychosis. He reported he did not know why he was in the hospital. He reports he lives with his mom and daddy. He denied a history of mental health diagnoses. The record from 2018 indicates a possible previous diagnosis of schizophrenia. The past record indicated he would wander the streets asking for money but lived with his sister. Case management has attempted to contact family but has been unsuccessful. Therefore, a mental health diagnosis cannot be confirmed, neither can a previous diagnosis of dementia. Staff report he attempted to leave the room saying God told him to go home. - Exam Orientation: place, person Affect: flat Mood: calm Thought content: other (sparse) Thought Process: Disoriented Perceptions: none Speech: slow Concentration: focused Motor activity: normal Level of consciousness: confused Memory: Recent Impaired Interaction: cooperative Mini mental status exam(if necessary): 0-17 Mental Status Exam - Vital signs Last Vital Signs Temp 99.1 F 09/13/18 12:26 Pulse 59 L 09/13/18 12:26 Resp 18 09/13/18 12:26 BP 102/62 09/13/18 12:26 Pulse Ox 98 09/13/18 12:26 Assessment and Plan Impression: Unable to R/O Neuro cognitive disorder Today the patient is confused during the assessment. At this time, the patient cannot safely take care of himself. Neuro is following. DDx: R/O Unspecified Psychosis Recommendation/Plan: Continue 1013 and gather collateral information. Case Mgmt involvement to help gather collateral information. Recommend Delirium precautions below: 1. Frequently reorient patient and involve him/her in their care (simple explanations of procedures, tests, medications). 2. Lights on and shades open during daytime hours. 3. Write date and goals of care in a visible place. 4. Try to avoid unnecessary interruptions to sleep during nighttime hours. 5. Obtain glasses, hearing aids from home if patient uses these at baseline. 6. Avoid medications that may exacerbate delirium (especially narcotics, benzodiazepines, barbiturates, ambien, lunesta, and medications with excessive anticholinergic properties). Will staff with Dr Dharmesh Jackson
--- NOTE | 2018-09-14 10:30 | Progress Note ---
Subjective - Reason for Consult Consult date: 09/14/18 Reason for consult: Psychiatry Follow-up - Chief Complaint Chief complaint: "I live near here" 3-year-old W/M who was referred to psychiatry for psychosis. Today the patient was calm, but confused during the assessment. He can recall the street number to his address, but cannot state the full address when asked. He could not state the current/past [place] Presidents. He is adamant hat his "mommy and daddy" are living. Per the staff, the patient is eating, with no behavioral disturbances. At this time, the patient is a poor historian. No gestures of SI/HI's. Mental Status Exam - Vital signs Last Vital Signs Temp 98.1 F 09/14/18 06:15 Pulse 46 L 09/14/18 06:15 Resp 20 09/14/18 06:15 BP 136/77 09/14/18 06:15 Pulse Ox 97 09/14/18 06:15 - Exam Narrative exam: MSE: Appearance: calm Behavior: regular eye contact Speech: regular rate and tone Mood: "okay" Affect: flat Thought Process: confused Thought Content: no gestures of SI/HI's Motor Activity: sitting up in bed Cognition: alert Insight: poor Judgment: variable to fair Assessment and Plan Impression: Unable to R/O Neuro Cog DO. Today the patient is confused during the assessment. At this time, the patient cannot safely take care of himself. Neuro is following. DDx: R/O Unspecified Psychosis Recommendation/Plan: Continue 1013 and gather collateral information. Case Mgmt involvement to help gather collateral information. Recommend Delirium precautions below: 1. Frequently reorient patient and involve him/her in their care (simple explanations of procedures, tests, medications). 2. Lights on and shades open during daytime hours. 3. Write date and goals of care in a visible place. 4. Try to avoid unnecessary interruptions to sleep during nighttime hours. 5. Obtain glasses, hearing aids from home if patient uses these at baseline. 6. Avoid medications that may exacerbate delirium (especially narcotics, benzodiazepines, barbiturates, ambien, lunesta, and medications with excessive anticholinergic properties). Will staff with Dr Dharmesh Jackson
[2018-09-14] MEDS: PEPCID PO SCH ×2 (11:19→21:24)
[2018-09-14] MEDS: LOVENOX SUB-Q SCH (11:19)
[2018-09-14] MEDS: KEPPRA PO SCH ×2 (11:20→21:22)
[2018-09-14] MEDS: SODIUM CHLORIDE FLUSH SYRINGE 10 ML IV SCH ×2 (11:21→21:25)
--- NOTE | 2018-09-14 11:41 | Progress Note ---
Assessment and Plan Assessment and plan: Patient is a 63 yo man with a history of Schizophrenia and dementia who presented to [facility] with AMS and possible seizure activity Acute encephalopathy treat the underling seizures Acute on chronic seizure disorder: treat with Keppra, pending Neurology isaac vitale Bradycardia: continue to monitor, get EKG, add remote tele, ECHO reviewed Elevated bp uncontrolled: stop IVF on regular diet Lactic acidosis, non-infectious Mild malnutrition: dietary supplements recommended DVT ppx on Lovenox Disposition: continue inpatient care, medical stable to be discharge, await Mental health clearance History Interval history: Patient was seen and examined. Follow-up on current diagnosis of SZ and AMS. No overnight events reported to me. Patient denies any chest pain, shortness breath, nausea/vomiting or severe headaches. Imaging, nursing note, chart, labs and old chart reviewed. Discussed with patient. Hospitalist Physical - Physical exam Narrative exam: Gen: thin frail, NAD, Awake, confused HEENT: NCAT, EOMI, PERRL, OP Clear Neck: supple, no adenopathy, no thyromegaly, no JVD CVS/Heart: Regular bradycardia, normal S1S2, pulses present bilaterally Chest/Lungs: CTA B, Symmetrical chest expansion, good air entry bilaterally GI/Abdomen: soft, NTND, good bowel sounds, no guarding or rebound /Bladder: no suprapubic tenderness, no CVA or paraspinal tenderness Extermity/Skin: no c/c/e, no obvious rash MSK: FROM x 4 Neuro: CN 2-12 grossly intact, no new focal deficits Psych: confused - Constitutional Vitals: Temp Pulse Resp BP Pulse Ox 98.1 F 46 L 20 136/77 97 09/14/18 06:15 09/14/18 06:15 09/14/18 06:15 09/14/18 06:15 09/14/18 06:15 Results - Labs CBC & Chem 7: 09/11/18 07:23 09/11/18 07:23 Labs: Laboratory Last Values WBC 7.8 K/mm3 (4.5-11.0) 09/11/18 07:23 RBC 4.25 M/mm3 (3.65-5.03) 09/11/18 07:23 Hgb 12.2 gm/dl (11.8-15.2) 09/11/18 07:23 Hct 36.7 % (35.5-45.6) 09/11/18 07:23 MCV 87 fl (84-94) 09/11/18 07:23 MCH 29 pg (28-32) 09/11/18 07:23 MCHC 33 % (32-34) 09/11/18 07:23 RDW 14.8 % (13.2-15.2) 09/11/18 07:23 Plt Count 291 K/mm3 (140-440) 09/11/18 07:23 Lymph % (Auto) 17.9 % (13.4-35.0) 09/11/18 07:23 [place] % (Auto) 6.0 % (0.0-7.3) 09/11/18 07:23 Eos % (Auto) 1.3 % (0.0-4.3) 09/11/18 07:23 Baso % (Auto) 0.8 % (0.0-1.8) 09/11/18 07:23 Lymph # 1.4 K/mm3 (1.2-5.4) 09/11/18 07:23 [place] # 0.5 K/mm3 (0.0-0.8) 09/11/18 07:23 Eos # 0.1 K/mm3 (0.0-0.4) 09/11/18 07:23 Baso # 0.1 K/mm3 (0.0-0.1) 09/11/18 07:23 Seg Neutrophils % 74.0 % (40.0-70.0) H 09/11/18 07:23 Seg Neutrophils # 5.7 K/mm3 (1.8-7.7) 09/11/18 07:23 PT 13.2 Sec. (12.2-14.9) 09/10/18 11:03 INR 0.95 (0.87-1.13) 09/10/18 11:03 APTT 20.0 Sec. (24.2-36.6) L 09/10/18 11:03 Sodium 142 mmol/L (137-145) 09/11/18 07:23 Potassium 3.4 mmol/L (3.6-5.0) L D 09/11/18 07:23 Chloride 108.0 mmol/L (98-107) H 09/11/18 07:23 Carbon Dioxide 22 mmol/L (22-30) 09/11/18 07:23 15 mmol/L 09/11/18 07:23 BUN 16 mg/dL (9-20) 09/11/18 07:23 1.3 mg/dL (0.8-1.5) 09/11/18 07:23 Estimated GFR 56 ml/min 09/11/18 07:23 12 % 09/11/18 07:23 Glucose 114 mg/dL (75-100) H 09/11/18 07:23 5.4 % (4-6) 09/10/18 22:37 Lactic Acid 0.80 mmol/L (0.7-2.0) 09/10/18 20:54 Calcium 8.1 mg/dL (8.4-10.2) L 09/11/18 07:23 Magnesium 2.10 mg/dL (1.7-2.3) 09/10/18 11:03 1.10 mg/dL (0.1-1.2) 09/11/18 07:23 < 0.2 mg/dL (0-0.2) 09/10/18 11:03 0.4 mg/dL 09/10/18 11:03 AST 19 units/L (5-40) 09/11/18 07:23 ALT 10 units/L (7-56) 09/11/18 07:23 46 units/L (35-129) 09/11/18 07:23 18.0 umol/L (25-60) L 09/10/18 11:03 226 units/L (55-170) H 09/10/18 11:03 < 0.010 ng/mL (0.00-0.029) 09/10/18 11:03 5.6 g/dL (6.3-8.2) L 09/11/18 07:23 3.3 g/dL (3.9-5) L 09/11/18 07:23 1.4 % 09/11/18 07:23 Yellow (Yellow) 09/10/18 Unknown Cloudy (Clear) 09/10/18 Unknown 5.0 (5.0-7.0) 09/10/18 Unknown Ur Specific [place] 1.014 (1.003-1.030) 09/10/18 Unknown <15 mg/dl mg/dL (Negative) 09/10/18 Unknown Neg mg/dL (Negative) 09/10/18 Unknown Neg mg/dL (Negative) 09/10/18 Unknown Sm (Negative) 09/10/18 Unknown Neg (Negative) 09/10/18 Unknown Neg (Negative) 09/10/18 Unknown < 2.0 mg/dL (<2.0) 09/10/18 Unknown Ur Leukocyte Esterase Neg (Negative) 09/10/18 Unknown 2.0 /HPF (0.0-6.0) 09/10/18 Unknown 3.0 /HPF (0.0-6.0) 09/10/18 Unknown U Epithel Cells (Auto) < 1.0 /HPF (0-13.0) 09/10/18 Unknown 1+ /HPF (Negative) 09/10/18 Unknown Uric Acid Crystals 2+ 09/10/18 Unknown Few /HPF (CUSTOMER SUPPORT CONSULTANT) 09/10/18 Unknown Salicylates < 0.3 mg/dL (2.8-20.0) L 09/10/18 11:03 Presumptive negative 09/10/18 Unknown Presumptive negative 09/10/18 Unknown Acetaminophen < 5.0 ug/mL (10.0-30.0) L 09/10/18 11:03 Ur Barbiturates Screen Presumptive negative 09/10/18 Unknown Ur Phencyclidine Scrn Presumptive negative 09/10/18 Unknown Ur Amphetamines Screen Presumptive negative 09/10/18 Unknown U Benzodiazepines Scrn Presumptive negative 09/10/18 Unknown Presumptive negative 09/10/18 Unknown U Marijuana (THC) Screen Presumptive negative 09/10/18 Unknown Disclamer 09/10/18 Unknown Plasma/Serum Alcohol < 0.01 % (0-0.07) 09/10/18 11:03 Active Medications - Current Medications Current Medications: Generic Name Dose Route Start Last Admin Trade Name Freq PRN Reason Stop Dose Admin Acetaminophen 650 mg 09/10/18 22:14 Tylenol PO Q4H PRN Pain MILD(1-3)/Fever >100.5/CHAVEZ Enoxaparin Sodium 40 mg 09/11/18 10:00 09/14/18 11:19 Lovenox SUB-Q 40 mg QDAY@1000 TALIA Administration Famotidine 10 mg 09/11/18 10:00 09/14/18 11:19 Pepcid PO 10 mg BID TALIA Administration Hydromorphone HCl 0.25 mg 09/10/18 22:14 Dilaudid IV Q3H PRN Pain, Moderate (4-6) Levetiracetam 750 mg 09/11/18 10:00 09/14/18 11:20 Keppra PO 750 mg BID TALIA Administration Ondansetron HCl 4 mg 09/10/18 22:14 Zofran IV Q8H PRN Nausea And Vomiting Sodium Chloride 10 ml 09/11/18 10:00 09/14/18 11:21 Sodium Chloride Flush Syringe 10 Ml IV 10 ml BID TALIA Administration Sodium Chloride 10 ml 09/10/18 22:14 Sodium Chloride Flush Syringe 10 Ml IV PRN PRN LINE FLUSH Nutrition/Malnutrition Assess - Dietary Evaluation Nutrition/Malnutrition Findings: Nutrition Notes Start: 09/11/18 16:55 Freq: Status: Active Protocol: Document 09/11/18 16:55 RM (Rec: 09/11/18 17:01 RM [id number]) Nutrition Notes Need for Assessment generated from: MST Initial or Follow up Assessment Other Pertinent Diagnosis Schizophrenia, Seizure disorder, AMS Current Diet Regular Labs/Tests Reviewed Pertinent Medications Reviewed Height 5 ft 7 in Weight 61.6 kg [place] Body Weight (kg) 67.27 BMI 21.2 Subjective/Other Information Screened for malnutrition. Pt w/sitter at time of visit. Pt stated that DIETETIC TECH his appetite was okay but that he is unsure how many meals he was eating daily. Unsure of how much he has been eating here and of UBW. Noted lunch at bedside w/none eaten. car seat upholsterer stated that pt ate all of his breakfast. No temporal or orbital wasting . Burn Absent Trauma Absent #1 Nutrition Diagnosis Inadequate oral intake Etiology AMS As Evidenced by Signs and Symptoms lunch at bedside w/none eaten Is patient on ventilator? No Is Patient Ambulatory and/or Out of Bed Yes REE-([facility]-ambulatory/OOB) [ 1780.519 NUTR.MSJOOB] Calculation Used for Recommendations [facility] Additional Notes Protein Needs: 49-62g (0.8-1g/ kg) Fluid Needs: 1 ml/kcal Nutrition Intervention Change Diet Order: Continue current Add Supplement/Snack (indicate name/kcal Ensure Enlive 1 daily /protein ) Provides kCal: 350 Provides Protein (gm) 20 Goal #1 Meet at least 75% of calorie and protein needs via PO and ONS intakes Anticipated Discharge Needs: Regular diet Follow-Up By: 09/16/18 Additional Comments Follow for PO and ONS intakes
[2018-09-14] MEDS ORDERED: ATIVAN IV PRN (21:11)
--- NOTE | 2018-09-15 08:14 | Progress Note ---
Subjective Date of service: 09/15/18 Interval history: did updated neuro exam and there is severe memory loss and confusion... severe amnesia present spoke to monitoring aide in the room and he clwarly can not establish new recall therefore is very amnestic / demented likely will need placment in memory care facility Objective - Laboratory Findings CBC and BMP: 09/11/18 07:23 09/11/18 07:23 Abnormal Lab Findings: Abnormal Labs 09/10/18 09/10/18 09/10/18 11:03 11:03 11:03 Lymph % (Auto) Lymph # Seg Neutrophils % Seg Neutrophils # APTT 20.0 L Potassium Chloride Glucose Lactic Acid 3.80 H* Calcium Ammonia Total Creatine Kinase 226 H Total Protein Albumin Salicylates Acetaminophen 09/10/18 09/10/18 09/10/18 11:03 11:03 11:03 Lymph % (Auto) Lymph # Seg Neutrophils % Seg Neutrophils # APTT Potassium Chloride Glucose Lactic Acid Calcium Ammonia 18.0 L Total Creatine Kinase Total Protein Albumin Salicylates < 0.3 L Acetaminophen < 5.0 L 09/10/18 09/10/18 09/11/18 11:03 13:51 07:23 Lymph % (Auto) 11.2 L Lymph # 1.1 L Seg Neutrophils % 84.8 H 74.0 H Seg Neutrophils # 8.5 H APTT Potassium Chloride Glucose Lactic Acid 2.50 H* Calcium Ammonia Total Creatine Kinase Total Protein Albumin Salicylates Acetaminophen 09/11/18 07:23 Lymph % (Auto) Lymph # Seg Neutrophils % Seg Neutrophils # APTT Potassium 3.4 L D Chloride 108.0 H Glucose 114 H Lactic Acid Calcium 8.1 L Ammonia Total Creatine Kinase Total Protein 5.6 L Albumin 3.3 L Salicylates Acetaminophen
[2018-09-15] MEDS: LOVENOX SUB-Q SCH (11:45)
[2018-09-15] MEDS: KEPPRA PO SCH (11:45)
[2018-09-15] MEDS: SODIUM CHLORIDE FLUSH SYRINGE 10 ML IV SCH (11:46)
[2018-09-15] MEDS: PEPCID PO SCH (11:46)
--- NOTE | 2018-09-15 11:52 | Progress Note ---
Assessment and Plan Assessment and plan: Patient is a 63 yo man with a history of Schizophrenia and dementia who presented to [facility] with AMS and possible seizure activity Acute encephalopathy treat the underling seizures Dementia suspected per Neurology Acute on chronic seizure disorder: treat with Keppra, pending Neurology evaluation done, input noted Bradycardia: continue to monitor, get EKG, add remote tele, ECHO reviewed Elevated bp uncontrolled: stop IVF on regular diet Lactic acidosis, non-infectious Mild malnutrition: dietary supplements recommended DVT ppx on Lovenox Disposition: continue inpatient care, medical stable to be discharge, await Mental health clearance Neurology mentioned placement in memory facility but patient is unfunded we believe. janitorial services supervisor had a rep go to his home. History Interval history: Patient was seen and examined. Follow-up on current diagnosis of SZ and AMS. No overnight events reported to me. Patient denies any chest pain, shortness breath, nausea/vomiting or severe headaches. Imaging, nursing note, chart, labs and old chart reviewed. Discussed with patient. Hospitalist Physical - Physical exam Narrative exam: Gen: thin frail, NAD, Awake, confused HEENT: NCAT, EOMI, PERRL, OP Clear Neck: supple, no adenopathy, no thyromegaly, no JVD CVS/Heart: Regular bradycardia, normal S1S2, pulses present bilaterally Chest/Lungs: CTA B, Symmetrical chest expansion, good air entry bilaterally GI/Abdomen: soft, NTND, good bowel sounds, no guarding or rebound /Bladder: no suprapubic tenderness, no CVA or paraspinal tenderness Extermity/Skin: no c/c/e, no obvious rash MSK: FROM x 4 Neuro: CN 2-12 grossly intact, no new focal deficits Psych: confused - Constitutional Vitals: Temp Pulse Resp BP Pulse Ox 98.5 F 78 52 H 127/84 97 09/15/18 05:22 09/14/18 20:00 09/15/18 05:22 09/15/18 05:22 09/14/18 20:00 Results - Labs CBC & Chem 7: 09/11/18 07:23 09/11/18 07:23 Labs: Laboratory Last Values WBC 7.8 K/mm3 (4.5-11.0) 09/11/18 07:23 RBC 4.25 M/mm3 (3.65-5.03) 09/11/18 07:23 Hgb 12.2 gm/dl (11.8-15.2) 09/11/18 07:23 Hct 36.7 % (35.5-45.6) 09/11/18 07:23 MCV 87 fl (84-94) 09/11/18 07:23 MCH 29 pg (28-32) 09/11/18 07:23 MCHC 33 % (32-34) 09/11/18 07:23 RDW 14.8 % (13.2-15.2) 09/11/18 07:23 Plt Count 291 K/mm3 (140-440) 09/11/18 07:23 Lymph % (Auto) 17.9 % (13.4-35.0) 09/11/18 07:23 [place] % (Auto) 6.0 % (0.0-7.3) 09/11/18 07:23 Eos % (Auto) 1.3 % (0.0-4.3) 09/11/18 07:23 Baso % (Auto) 0.8 % (0.0-1.8) 09/11/18 07:23 Lymph # 1.4 K/mm3 (1.2-5.4) 09/11/18 07:23 [place] # 0.5 K/mm3 (0.0-0.8) 09/11/18 07:23 Eos # 0.1 K/mm3 (0.0-0.4) 09/11/18 07:23 Baso # 0.1 K/mm3 (0.0-0.1) 09/11/18 07:23 Seg Neutrophils % 74.0 % (40.0-70.0) H 09/11/18 07:23 Seg Neutrophils # 5.7 K/mm3 (1.8-7.7) 09/11/18 07:23 PT 13.2 Sec. (12.2-14.9) 09/10/18 11:03 INR 0.95 (0.87-1.13) 09/10/18 11:03 APTT 20.0 Sec. (24.2-36.6) L 09/10/18 11:03 Sodium 142 mmol/L (137-145) 09/11/18 07:23 Potassium 3.4 mmol/L (3.6-5.0) L D 09/11/18 07:23 Chloride 108.0 mmol/L (98-107) H 09/11/18 07:23 Carbon Dioxide 22 mmol/L (22-30) 09/11/18 07:23 15 mmol/L 09/11/18 07:23 BUN 16 mg/dL (9-20) 09/11/18 07:23 1.3 mg/dL (0.8-1.5) 09/11/18 07:23 Estimated GFR 56 ml/min 09/11/18 07:23 12 % 09/11/18 07:23 Glucose 114 mg/dL (75-100) H 09/11/18 07:23 5.4 % (4-6) 09/10/18 22:37 Lactic Acid 0.80 mmol/L (0.7-2.0) 09/10/18 20:54 Calcium 8.1 mg/dL (8.4-10.2) L 09/11/18 07:23 Magnesium 2.10 mg/dL (1.7-2.3) 09/10/18 11:03 1.10 mg/dL (0.1-1.2) 09/11/18 07:23 < 0.2 mg/dL (0-0.2) 09/10/18 11:03 0.4 mg/dL 09/10/18 11:03 AST 19 units/L (5-40) 09/11/18 07:23 ALT 10 units/L (7-56) 09/11/18 07:23 46 units/L (35-129) 09/11/18 07:23 18.0 umol/L (25-60) L 09/10/18 11:03 226 units/L (55-170) H 09/10/18 11:03 < 0.010 ng/mL (0.00-0.029) 09/10/18 11:03 5.6 g/dL (6.3-8.2) L 09/11/18 07:23 3.3 g/dL (3.9-5) L 09/11/18 07:23 1.4 % 09/11/18 07:23 Yellow (Yellow) 09/10/18 Unknown Cloudy (Clear) 09/10/18 Unknown 5.0 (5.0-7.0) 09/10/18 Unknown Ur Specific [place] 1.014 (1.003-1.030) 09/10/18 Unknown <15 mg/dl mg/dL (Negative) 09/10/18 Unknown Neg mg/dL (Negative) 09/10/18 Unknown Neg mg/dL (Negative) 09/10/18 Unknown Sm (Negative) 09/10/18 Unknown Neg (Negative) 09/10/18 Unknown Neg (Negative) 09/10/18 Unknown < 2.0 mg/dL (<2.0) 09/10/18 Unknown Ur Leukocyte Esterase Neg (Negative) 09/10/18 Unknown 2.0 /HPF (0.0-6.0) 09/10/18 Unknown 3.0 /HPF (0.0-6.0) 09/10/18 Unknown U Epithel Cells (Auto) < 1.0 /HPF (0-13.0) 09/10/18 Unknown 1+ /HPF (Negative) 09/10/18 Unknown Uric Acid Crystals 2+ 09/10/18 Unknown Few /HPF (COIN BOX INSPECTOR) 09/10/18 Unknown Salicylates < 0.3 mg/dL (2.8-20.0) L 09/10/18 11:03 Presumptive negative 09/10/18 Unknown Presumptive negative 09/10/18 Unknown Acetaminophen < 5.0 ug/mL (10.0-30.0) L 09/10/18 11:03 Ur Barbiturates Screen Presumptive negative 09/10/18 Unknown Ur Phencyclidine Scrn Presumptive negative 09/10/18 Unknown Ur Amphetamines Screen Presumptive negative 09/10/18 Unknown U Benzodiazepines Scrn Presumptive negative 09/10/18 Unknown Presumptive negative 09/10/18 Unknown U Marijuana (THC) Screen Presumptive negative 09/10/18 Unknown Disclamer 09/10/18 Unknown Plasma/Serum Alcohol < 0.01 % (0-0.07) 09/10/18 11:03 Active Medications - Current Medications Current Medications: Generic Name Dose Route Start Last Admin Trade Name Freq PRN Reason Stop Dose Admin Acetaminophen 650 mg 09/10/18 22:14 Tylenol PO Q4H PRN Pain MILD(1-3)/Fever >100.5/CHAVEZ Enoxaparin Sodium 40 mg 09/11/18 10:00 09/14/18 11:19 Lovenox SUB-Q 40 mg QDAY@1000 TALIA Administration Famotidine 10 mg 09/11/18 10:00 09/14/18 21:24 Pepcid PO 10 mg BID TALIA Administration Hydromorphone HCl 0.25 mg 09/10/18 22:14 Dilaudid IV Q3H PRN Pain, Moderate (4-6) Levetiracetam 750 mg 09/11/18 10:00 09/14/18 21:22 Keppra PO 750 mg BID TALIA Administration Lorazepam 1 mg 09/14/18 21:11 09/14/18 21:21 Ativan IV 1 mg Q4H PRN Administration Agitation Ondansetron HCl 4 mg 09/10/18 22:14 Zofran IV Q8H PRN Nausea And Vomiting Sodium Chloride 10 ml 09/11/18 10:00 09/14/18 21:25 Sodium Chloride Flush Syringe 10 Ml IV 10 ml BID TALIA Administration Sodium Chloride 10 ml 09/10/18 22:14 Sodium Chloride Flush Syringe 10 Ml IV PRN PRN LINE FLUSH Nutrition/Malnutrition Assess - Dietary Evaluation Nutrition/Malnutrition Findings: Nutrition Notes Start: 09/11/18 16:55 Freq: Status: Active Protocol: Document 09/11/18 16:55 RM (Rec: 09/11/18 17:01 RM [id number]) Nutrition Notes Need for Assessment generated from: MST Initial or Follow up Assessment Other Pertinent Diagnosis Schizophrenia, Seizure disorder, AMS Current Diet Regular Labs/Tests Reviewed Pertinent Medications Reviewed Height 5 ft 7 in Weight 61.6 kg [place] Body Weight (kg) 67.27 BMI 21.2 Subjective/Other Information Screened for malnutrition. Pt w/sitter at time of visit. Pt stated that FORMWORK CARPENTER his appetite was okay but that he is unsure how many meals he was eating daily. Unsure of how much he has been eating here and of UBW. Noted lunch at bedside w/none eaten. individual pension adviser stated that pt ate all of his breakfast. No temporal or orbital wasting . Burn Absent Trauma Absent #1 Nutrition Diagnosis Inadequate oral intake Etiology AMS As Evidenced by Signs and Symptoms lunch at bedside w/none eaten Is patient on ventilator? No Is Patient Ambulatory and/or Out of Bed Yes REE-([facility]-ambulatory/OOB) [ 1780.519 NUTR.MSJOOB] Calculation Used for Recommendations Maryl[facility] Jacob Additional Notes Protein Needs: 49-62g (0.8-1g/ kg) Fluid Needs: 1 ml/kcal Nutrition Intervention Change Diet Order: Continue current Add Supplement/Snack (indicate name/kcal Ensure Enlive 1 daily /protein ) Provides kCal: 350 Provides Protein (gm) 20 Goal #1 Meet at least 75% of calorie and protein needs via PO and ONS intakes Anticipated Discharge Needs: Regular diet Follow-Up By: 09/16/18 Additional Comments Follow for PO and ONS intakes
--- NOTE | 2018-09-15 14:02 | Progress Note ---
Subjective - Reason for Consult Consult date: 09/15/18 Reason for consult: Psychiatry Follow-up - Chief Complaint Chief complaint: "Jeannine" 63-year-old W/M who was referred to psychiatry for psychosis. Today the patient was calm, but still confused during the assessment. He is adamant that his "mommy and daddy" is waiting on him at his home. He could not tell me details about his current residence when asked. Per the staff, the patient ate 100% of his meals today. I the provider called [phone] per the chart to gain collateral information, no one answered. Mental Status Exam - Vital signs Last Vital Signs Temp 98.0 F 09/15/18 11:59 Pulse 66 09/15/18 11:59 Resp 18 09/15/18 11:59 BP 117/70 09/15/18 11:59 Pulse Ox 96 09/15/18 11:59 - Exam Narrative exam: MSE: Appearance: calm Behavior: regular eye contact Speech: regular rate and tone Mood: "okay" Affect: flat Thought Process: still confused Thought Content: denies SI/HI's and AVH's Motor Activity: sitting up in bed Cognition: alert Insight: impaired Judgment: variable Assessment and Plan Impression: Neuro Cog DO. Today the patient is confused during the assessment. Neuro is following. DDx: Dementia Recommendation/Plan: Rescind 1013. Start Aricept 5 mg PO HS for dementia symptoms. Recommend Case Mgmt involvement, the patient will need assistance with placement. Psy sign off. Recommend Delirium precautions below: 1. Frequently reorient patient and involve him/her in their care (simple explanations of procedures, tests, medications). 2. Lights on and shades open during daytime hours. 3. Write date and goals of care in a visible place. 4. Try to avoid unnecessary interruptions to sleep during nighttime hours. 5. Obtain glasses, hearing aids from home if patient uses these at baseline. 6. Avoid medications that may exacerbate delirium (especially narcotics, benzodiazepines, barbiturates, ambien, lunesta, and medications with excessive anticholinergic properties). 7. Recommend 1:1 sitter for safety. Dispo: The patient can follow up with [facility] for outpatient psy services. Staffed with Dr Dharmesh Jackson
[2018-09-15] MEDS ORDERED: ARICEPT PO SCH (22:00)
[2018-09-16] MEDS: PEPCID PO SCH ×2 (04:12→10:59)
[2018-09-16] MEDS: KEPPRA PO SCH ×2 (04:12→10:59)
[2018-09-16] MEDS: SODIUM CHLORIDE FLUSH SYRINGE 10 ML IV SCH ×2 (04:12→10:59)
[2018-09-16] MEDS: LOVENOX SUB-Q SCH (10:59)
--- NOTE | 2018-09-16 13:21 | Discharge Summary ---
Providers - Providers Date of Admission: 09/10/18 13:07 Date of discharge: 09/16/18 Attending physician: KALANI MALDONADO 09/10/18 13:06 Consult to Case Management [CONS] Urgent Services Needed at Discharge: [employer] Notified:: yes 09/10/18 22:16 Consult to Mental Health [CONS] Routine Reason For Exam: psychosis Place consult to:: psychosis Notified:: Phone number called:: [phone] Was contact made?: Yes If yes, spoke with:: juan Time called:: 10:52 09/11/18 05:47 Consult to Case Management [CONS] Routine Services Needed at Discharge: Home Health Services [employer] Manager Notified:: priscilla 09/11/18 08:50 Consult Geriatric-Psych [CONS] Routine Consulting Provider: Reason For Exam: AMS, Dementia 09/13/18 12:55 Consult to Physician [CONS] Routine Comment: Consulting Provider: CORNELIUS VARGAS Physician Instructions: Reason For Exam: seizure disorder [facility] Condition: Fair Pertinent studies: CT scan head unremarkable. Echocardiogram ejection fraction 55-60%. Hospital course: Ratio 63-year-old history of schizophrenia, dementia presented with altered mental status seizure. Patient episode of acute encephalopathy which is essentially resolved and now has underlying dementia. Patient also had acute seizure treated with Keppra has not had any further seizures. Stabilized for transfer home. Patient will course complicated by episode of bradycardia which resolved. Patient status post digit able to discharged by [facility] [id number] rescinded and patient placed on Aricept for dementia. Patient follow with primary care physician in 3-5 days. Case management consult was obtained. Placement issues has been resolved. Disposition: DC-01 TO HOME OR SELFCARE - Discharge Diagnoses (1) Acute encephalopathy Status: Acute (2) Cachexia Status: Acute (3) Elevated lactic acid level Status: Acute (4) Postictal state Status: Acute (5) Right bundle branch block Status: Acute Core Measure Documentation - Palliative Care Palliative Care/ Comfort Measures: Not Applicable - Core Measures Any of the following diagnoses?: none Exam - Constitutional Vitals: Temp Pulse Resp BP Pulse Ox 97.6 F 49 L 20 129/77 97 09/16/18 05:30 09/16/18 05:30 09/16/18 05:30 09/16/18 05:30 09/16/18 05:30 General appearance: Present: no acute distress, well-nourished - EENT Eyes: Present: PERRL ENT: hearing intact, clear oral mucosa - Neck Neck: Present: supple, normal ROM - Respiratory Respiratory effort: normal Respiratory: bilateral: CTA - Cardiovascular Heart Sounds: Present: S1 & S2. Absent: rub, click - Extremities Extremities: pulses symmetrical, No edema Peripheral Pulses: within normal limits - Abdominal General gastrointestinal: Present: soft, non-tender, non-distended, normal bowel sounds Male genitourinary: Present: normal - Integumentary Integumentary: Present: clear, warm, dry - Musculoskeletal Musculoskeletal: gait normal, strength equal bilaterally - Psychiatric Psychiatric: appropriate mood/affect, intact judgment & insight - Neurologic Neurologic: CNII-XII intact, moves all extremities, other (poor cognition.) Plan Activity: fall precautions Weight Bearing Status: Weight Bear as Tolerated Diet: low salt Special Instructions: home health RN Follow up with: [facility] [Outside] - 7 Days [facility] [Outside] [facility] MD JUAN [Primary Care Provider] - 3-5 Days Prescriptions: Donepezil [Aricept] 5 mg PO QHS #30 tablet levETIRAcetam [Keppra TAB] 750 mg PO BID #60 tablet Famotidine [Pepcid] 10 mg PO BID #20 tablet
[2018-09-16 17:26] VITALS: BP 119/80
== END 2018-09-16 19:00 | disposition home or self-care (01) | DRG 101 ==
LOC: ED 10:22 → 3A 13:07
PROVIDERS: ADMIT Internal Medicine; ATTEND Internal Medicine
DX: G40.909 Epilepsy, unspecified, not intractable, without status epilepticus (principal); G93.40 Encephalopathy, unspecified; E87.2 Acidosis; E44.1 Mild protein-calorie malnutrition; F20.9 Schizophrenia, unspecified; F03.90 Unspecified dementia, unspecified severity, without behavioral disturbance, psychotic disturbance, mood disturbance, and anxiety; R00.1 Bradycardia, unspecified; I45.10 Unspecified right bundle-branch block; R41.9 Unspecified symptoms and signs involving cognitive functions and awareness; Z68.21 Body mass index [BMI] 21.0-21.9, adult
CPT/HCPCS: 36415; 70450; 71045; 80048; 80053; 80076; 80307; 80320; 81001; 82140; 82550; 83036; 83735; 84484; 85025; 85610; 85730; 93005; 93010; 93306; G0378; G0480; J1650; J1953; J2060; J7030; J7042